=== PATIENT | female | born 1965 | race Caucasian/White ===

== ENCOUNTER 2024-09-22 05:32 | Inpatient (IN) | payer OTHER, BC ==
[~2024-09-22] VITALS: Ht 160 cm; Wt 83.9 kg
[2024-09-22] MEDS: ACETAMINOPHEN 325MG TABLET PO ONE (06:12)
[2024-09-22] MEDS: MORPHINE SULFATE 4 MG/ML INJ (FOR IV/IM USE) IV ONE (09:49)
[2024-09-22] MEDS: MORPHINE SULFATE 2 MG/ML INJ (NOT FOR IM USE) IV ONE (10:58)
[2024-09-22 12:50] LABS: BASOPHILS % 0.7 % (0.0-2.0); EOSINOPHILS % 0.6 % (0.0-5.0); HEMATOCRIT. 39.1 % (36.0-48.0); HEMOGLOBIN. 13.4 g/dL (12.0-16.0); LYMPHOCYTES % 28.3 % (20.0-50.0); MEAN CORPUSCULAR HEMOGLOBIN 32.3 pg (28.0-32.0); MEAN CORPUSCULAR HGB CONC 34.2 g/dL (31.0-37.0); MEAN CORPUSCULAR VOLUME 94.3 fL (81.0-99.0); MONOCYTES % 7.2 % (2.0-8.0); NEUTROPHILS % 63.2 % (40.0-76.0); PLATELET 263 x1000/uL (130-400); RED BLOOD CELL COUNT 4.14 mill/uL (4.2-5.4); RED CELL DISTRIBUTION WIDTH 13.3 % (11.6-14.6); WHITE BLOOD COUNT 10.1 x1000/uL (4.5-11.0)
[2024-09-22 12:53] LABS: CHLORIDE 106 mEq/L (98-107); POTASSIUM 3.9 mEq/L (3.5-5.1); SODIUM 141 mEq/L (136-145)
[2024-09-22 12:54] LABS: CALCIUM 9.1 mg/dL (8.7-10.4); CARBON DIOXIDE 26 mEq/L (21-32)
[2024-09-22 12:59] LABS: CREATININE 0.8 mg/dL (0.6-1.0); GLUCOSE 114 mg/dL (70-105); UREA NITROGEN BLOOD 13 mg/dL (9-23)
[2024-09-22 14:07] VITALS: BP 145/88; PULSE 89; RESP 18; TEMP 36.8
[2024-09-22] MEDS ORDERED: ONDANSETRON HCL 4MG/2ML INJ IV PRN (14:30)
[2024-09-22] MEDS: ENOXAPARIN 40MG/0.4ML SYR SUBCUT SCH (14:30)
[2024-09-22] MEDS ORDERED: ZOLPIDEM TARTRATE 5MG TABLET PO PRN (14:30)
[2024-09-22] MEDS ORDERED: ACETAMINOPHEN 325MG TABLET PO PRN ×2 (14:30)
[2024-09-22] MEDS ORDERED: NALOXONE HCL 0.4MG/ML VIAL IV PRN (14:30)
[2024-09-22] MEDS: DIPHENHYDRAMINE 50MG/ML VIAL IV PRN (14:41)
[2024-09-22 16:16] VITALS: BP 140/77; PULSE 88; RESP 18; TEMP 36.7; O2SAT 99
[2024-09-22] MEDS: HYDROCODONE/ACETAMINOPHEN 10/325MG TABLET PO PRN (16:53)
[2024-09-22 20:00] VITALS: BP 131/79; PULSE 77; RESP 18; TEMP 36.5; O2SAT 98
[2024-09-22] MEDS: KETOROLAC 30MG/ML VIAL IV PRN (21:40)
[2024-09-23] VITALS (7 sets, daily range): BP systolic 117–152; BP diastolic 69–91; PULSE 73–91; RESP 19–20; TEMP 36.3–36.5; O2SAT 95–100
[2024-09-23] MEDS: SODIUM CHLORIDE 0.9% 3ML FLUSH IVF SCH (14:00)
== END 2024-09-23 18:55 | disposition home or self-care (01) | DRG 563 ==
LOC: ER 05:32 → ENRESERV 12:04 → 8EST 12:59
PROVIDERS: ADMIT Internal Medicine; ATTEND Internal Medicine
DX: S82.091A Other fracture of right patella, initial encounter for closed fracture (principal); W01.0XXA Fall on same level from slipping, tripping and stumbling without subsequent striking against object, initial encounter; Y93.89 Activity, other specified; Y92.89 Other specified places as the place of occurrence of the external cause; Y99.8 Other external cause status
CPT/HCPCS: 29515; 36415; 73562; 80048; 85025; 93970; 99285; A4606; A6449; J1200; J1885; J2270; L1830